=== PATIENT | female | born 1990 | race Caucasian/White ===

== ENCOUNTER 2017-04-28 23:33 | Emergency (ER) | payer SELFPAY ==
[2017-04-28] MEDS ORDERED: Ketorolac 60 MG/2 ML SDV IM ONE (23:46)
[2017-04-28] MEDS ORDERED: Acetaminophen/HYDROcodone 325-7.5 MG Tab PO ONE (23:46)
[2017-04-28] MEDS ORDERED: Bacitracin Oint 1 GM U/D Packet TOP ONE (23:46)
[2017-04-28] MEDS ORDERED: Diphtheria,Pertussis(Acell),Tetanus Vaccine 0.5 ML Syringe IM ONE (23:51)
--- NOTE | 2017-04-28 23:51 | EDM.PDOC ---
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 The patient complains only of pain to that area does not have any eye pain oral pain and no other injuries to the rest of her body including her hands. Prior to these events she was in usual state of good health with no systemic complaints of upper respiratory symptoms or abdominal complaints. Patient denies as she is not sexually active. Patient says that there is a extreme burning sensation to her face. She is able to swallow and speak. Patient has no blurred vision on the right eye and absolutely drainage or pain to it. Review of systems: As per history of present illness and below otherwise all systems reviewed and negative. Past medical history: As per history of present illness and as reviewed below otherwise noncontributory. Surgical history: As per history of present illness and as reviewed below otherwise noncontributory. Social history: No reported history of drug or alcohol abuse. Family history: As per history of present illness and as reviewed below otherwise noncontributory. Physical exam: Gen.: Well-developed well-nourished female who is nontoxic and vital signs are noted by me HEENT: Atraumatic, normocephalic, pupils reactive, EOMs intact, negative for conjunctival pallor or scleral icterus, mucous membranes moist, throat clear, neck supple, nontender, trachea midline. There is no swelling of the lips or the oropharynx and the sclera is noninjected. Patient's visual acuity is grossly normal on the right eye and there is no eyelid swelling or erythema. Please see skin exam below for areas of burn. Lungs: Clear to auscultation, breath sounds equal bilaterally, chest nontender. Heart: S1S2, regular rate and rhythm no overt murmurs Abdomen: Soft, nondistended, nontender. NABS Pelvis: Deferred Genitourinary: Deferred. Rectal: Deferred. Extremities: Atraumatic, negative for cords or calf pain. Neurovascular unremarkable. Neuro: Awake, alert, oriented. Cranial nerves II through XII unremarkable. Cerebellum unremarkable. Motor and sensory unremarkable throughout. Exam nonfocal. Skin: There is no evidence of any ballard or injuries to any areas of the skin other than face. At the right side of the face at the cheek and maxillary area, the nose, the infraorbital area there is pinkish ill-defined erythema without any blisters or lesions. There is some soft tissue swelling in this region and the eyelid on the right is not involved. There is no lip swelling or extension to the mandible or up to the forehead. There is tenderness with palpation of this area. Diagnostics: [] Therapeutics: Cool saline gauze to the area, Toradol, [place], bacitracin to the face Tdap Impression: Superficial partial burn to the right face Definitive disposition and diagnosis as appropriate pending reevaluation and review of above. face Pain Score (Numeric/FACES): 8 - Related Data Allergies Allergy/AdvReac Type Severity Reaction Status Date / Time No Known Allergies Allergy Verified 04/28/17 23:43 Home Meds: Home Meds . [No Known Home Meds] 04/28/17 [History] Past Medical History - Past Health History Medical/Surgical History: Denies Medical/Surgical History Social & Family History - Family History Family Medical History: Noncontributory - Tobacco Use Smoking Status *Q: Never Smoker - Caffeine Use Caffeine Use: Reports: Soda - Recreational Drug Use Recreational Drug Use: No ED ROS GENERAL - Review of Systems Review Of Systems: ROS reveals no pertinent complaints other than HPI. ED EXAM, GENERAL - Physical Exam Exam: See Below (See dictation) Course - Vital Signs Last Recorded V/S: Last Vital Signs Temp 36.2 C 04/28/17 23:37 Pulse 104 H 04/28/17 23:37 Resp 19 04/28/17 23:37 BP 150/95 H 04/28/17 23:37 Pulse Ox 97 04/28/17 23:37 - Orders/Labs/Meds Orders: Active Orders 24 hr Category Date Time Status Communication Order [RC] STAT Care 04/28/17 23:46 Ordered Vaccines to be Administered [RC] PER UNIT ROUTINE Care 04/28/17 23:51 Ordered Meds: Medications Discontinued Medications Generic Name Dose Route Start Last Admin Trade Name Freq PRN Reason Stop Dose Admin Hydrocodone Bitart/Acetaminophen 1 tab 04/28/17 23:46 [place] 325-7.5 Mg PO 04/28/17 23:47 ONETIME ONE Bacitracin 3 dose 04/28/17 23:46 Bacitracin Oint 1 Gm TOP 04/28/17 23:47 ONETIME ONE Diphtheria/Tetanus/Acell Pertussis 0.5 ml 04/28/17 23:51 Adacel IM 04/28/17 23:52 .ONCE ONE Ketorolac Tromethamine 60 mg 04/28/17 23:46 Toradol IM 04/28/17 23:47 ONETIME ONE Departure - Departure Time of Disposition: 23:58 Disposition: Home, Self-Care 01 Condition: Good Clinical Impression: Burn of face Qualifiers: Encounter type: initial encounter Burn degree: partial thickness (2nd degree) Qualified Code(s): T20.20XA - Burn of second degree of head, face, and neck, unspecified site, initial encounter - Discharge Information Referrals: PCP,None [Primary Care Provider] - Forms: ED Department Discharge Additional Instructions: The following information is given to patients seen in the emergency department who are being discharged to home. This information is to outline your options for follow-up care. We provide all patients seen in our emergency department with a follow-up referral. The need for follow-up, as well as the timing and circumstances, are variable depending upon the specifics of your emergency department visit. If you don't have a primary care physician on staff, we will provide you with a referral. We always advise you to contact your personal physician following an emergency department visit to inform them of the circumstance of the visit and for follow-up with them and/or the need for any referrals to a consulting specialist. The emergency department will also refer you to a specialist when appropriate. This referral assures that you have the opportunity for followup care with a specialist. All of these measure are taken in an effort to provide you with optimal care, which includes your followup. Under all circumstances we always encourage you to contact your private physician who remains a resource for coordinating your care. When calling for followup care, please make the office aware that this follow-up is from your recent emergency room visit. If for any reason you are refused follow-up, please contact the [facility] emergency department at and ask to speak to the emergency department charge nurse. [facility]-Plastic Surgery and Hand Surgery Professional [address] [id number] Please continue with cool compresses to the face as needed for pain and swelling. Cleanse the face with mild soap and water such as Cetaphil and pat dry. Apply bacitracin to the face 3 times a day after the cleansing. If blisters appear do not pop or manipulate them. Please call our plastic surgeon tomorrow at the clinic for follow-up appointment. Use medications as prescribed for pain from [facility], ibuprofen and [place]. - My Orders Last 24 Hours: My Active Orders 04/28/17 23:46 Communication Order [RC] STAT 04/28/17 23:51 Vaccines to be Administered [RC] PER UNIT ROUTINE - Assessment/Plan Last 24 Hours: My Active Orders 04/28/17 23:46 Communication Order [RC] STAT 04/28/17 23:51 Vaccines to be Administered [RC] PER UNIT ROUTINE
== END 2017-04-29 00:38 | disposition home or self-care (01) ==
LOC: MW.ED 23:33
DX: T20.20XA Burn of second degree of head, face, and neck, unspecified site, initial encounter (principal); Z23 Encounter for immunization; X12.XXXA Contact with other hot fluids, initial encounter; Y93.89 Activity, other specified
CPT/HCPCS: 90471; 90715; 96372; 99283; A9270; J1885; 99284